=== PATIENT | male | born 1985 | race African-American/Black ===

== ENCOUNTER 2022-04-09 13:54 | Inpatient (IN) | payer BC ==
[~2022-04-09] VITALS: Ht 162.6 cm; Wt 63.5 kg
== END 2022-04-12 17:56 | disposition home or self-care (01) | DRG 638 ==
LOC: ER 13:54 → MEDI 20:25 → ICU-2 20:25 → ICUI 20:25 → ICU-2 04-10 00:08 → SEC-K 04-10 20:21 → MEDI 04-10 20:31
PROVIDERS: ADMIT Internal Medicine; ATTEND Internal Medicine
DX: E10.10 Type 1 diabetes mellitus with ketoacidosis without coma (principal); N17.8 Other acute kidney failure; Z79.4 Long term (current) use of insulin; E86.0 Dehydration; Z20.822 Contact with and (suspected) exposure to COVID-19